=== PATIENT | female | born 1950 | race Caucasian/White ===

== ENCOUNTER → 2024-07-17 | Outpatient (CLI) | payer MEDICARE, OTHER, SELFPAY ==
--- NOTE | 2024-07-17 13:30 | RAD_ITS ---
HISTORY: SURGICAL PLANNING FOR NERVE STIMULATOR. TECHNIQUE: XR Spine Thoracic 3 Views. COMPARISON: None. FINDINGS: VERTEBRAE: 12 thoracic vertebrae. Vertebral body heights maintained. No acute fracture identified. ALIGNMENT: No significant anterior or posterior subluxation. No scoliosis. INTERVERTEBRAL DISCS: Mild degenerative endplate changes in the midthoracic spine with small osteophytes. SOFT TISSUES: Unremarkable paraspinal soft tissues. RAD/Thoracic Spine 3 Views IMPRESSION: No acute fracture or dislocation identified in the thoracic spine. Mild degenerative change. Electronically Signed: Munira Simms MD at 11:17 EST ,
--- NOTE | 2024-07-17 13:30 | RAD_ITS ---
HISTORY: SURGICAL PLANNING FOR NERVE STIMULATOR. TECHNIQUE: XR Spine Lumbar Min 4 Views. COMPARISON: None. FINDINGS: VERTEBRAE: 5 lumbar vertebral bodies. Vertebral body heights preserved. Degenerative changes of the posterior elements with facet arthropathy. ALIGNMENT: No significant anterior or posterior subluxation. No significant scoliosis. INTERVERTEBRAL DISCS: Mild degenerative endplate changes with osteophytes L1-2 and L2-3. Intervertebral disc heights otherwise maintained. SOFT TISSUES: Object over the left lower pelvis may be external to the patient. RAD/L/S Spine Min 4 Views IMPRESSION: No acute fracture or dislocation identified in the lumbar spine. Mild degenerative change. Electronically Signed: Munira Simms MD at 11:18 EST ,
== END | disposition home or self-care (01) ==
PROVIDERS: PCP Family Medicine; Referring Provider Anesthesiology; Visit Provider Anesthesiology
DX: M46.96 Unspecified inflammatory spondylopathy, lumbar region (principal); M25.78 Osteophyte, vertebrae
CPT/HCPCS: 72072; 72110